=== PATIENT | male | born 1980 | race Caucasian/White ===

== ENCOUNTER 2019-02-16 21:18 | Emergency (ER) | payer SELFPAY ==
[~2019-02-16] VITALS: Ht 172.7 cm; Wt 89.8 kg
[2019-02-16 21:39] VITALS: Ht 172.7 cm; Wt 89.8 kg
[2019-02-17 00:06] VITALS: BP 126/94
== END 2019-02-17 00:06 | disposition home or self-care (01) ==
LOC: ED 21:18
DX: K21.9 Gastro-esophageal reflux disease without esophagitis (principal)